=== PATIENT | female | born 1970 | race Caucasian/White ===

== ENCOUNTER 2016-10-16 22:33 | Emergency (ER) | payer OTHER ==
[~2016-10-16] VITALS: Ht 157.5 cm; Wt 65.8 kg
[~2016-10-16 22:33] MED LIST: ALEVE
[2016-10-16 22:51] VITALS: BP 198/123
--- NOTE | 2016-10-16 23:00 | NUR ---
TO ER BED 7
--- NOTE | 2016-10-16 23:00 | NUR ---
46 YO PATIENT PRESENTS TO ED WITH LT LOWER JAW AND TOOTH PAIN. . PT STATES START YESTER DAY AFTERNOON. TOOK ibUPROPHINE 800MG @ 11:00 AND 1600 . DENIES N/V/D; SKIN IS PINK/WARM/DRY; AAOX4 WITH EVEN AND STEADY GAIT; LUNGS CLEAR BL; HR EVEN AND REGULAR; PT DENIES ANY FEVER, CP, SOB, OR COUGH AT THIS TIME; PATIENT STATES PAIN OF 10/10 AT THIS TIME; VSS; PATIENT POSITIONED FOR COMFORT; HOB ELEVATED; BEDRAILS UP X2; BED DOWN. ER MD MADE AWARE OF PT STATUS.
--- NOTE | 2016-10-16 23:24 | NUR ---
Patient being evaluated by physician at bedside.
[2016-10-16] MEDS ORDERED: LORazepam 1 MG TAB PO ONE (23:25)
[2016-10-16] MEDS ORDERED: KETOROLAC 30 MG/ML VIAL IM ONE (23:25)
[2016-10-16] MEDS ORDERED: HYDROcodone/APAP 5/325 MG 1 TAB TAB PO ONE (23:25)
--- NOTE | 2016-10-17 01:00 | NUR ---
Patient discharged with v/s stable. Written and verbal after care instructions given and explained. Patient alert, oriented and verbalized understanding of instructions. Ambulatory with steady gait. All questions addressed prior to discharge. ID band removed. Patient advised to follow up with PMD. Rx of NAPROXEN, NORCO, PEN VK given. Patient educated on indication of medication including possible reaction and side effects. Opportunity to ask questions provided and answered.
--- NOTE | 2016-10-17 01:00 | NUR ---
Note essierenu in EDM - 10/17/16 at 0651 by [id number] Patient discharged with v/s stable. Written and verbal after care instructions given and explained. Patient alert, oriented and verbalized understanding of instructions. Ambulatory with steady gait. All questions addressed prior to discharge. ID band removed. Patient advised to follow up with PMD. Rx of NAPROSYN 500MG 1 TAB PO 2 TIMES A DAY FOR PAIN,NORCO 5/325MG 1 TAB PO EVERY 4 HOURS FOR PAIN, PENICILLIN VK 500MG 1 TAB PO 3 TIMES A DAY. Patient educated on indication of medication including possible reaction and side effects. Opportunity to ask questions provided and answered.
[2016-10-17 01:09] VITALS: BP 175/87
== END 2016-10-17 01:06 | disposition home or self-care (01) ==
LOC: MED 22:33
DX: K08.89 Other specified disorders of teeth and supporting structures (principal); R51 Headache; F17.200 Nicotine dependence, unspecified, uncomplicated; Z91.018 Allergy to other foods
CPT/HCPCS: 81002; 81025; 96372; 99283; J1885

== ENCOUNTER 2019-11-12 16:20 | Emergency (ER) | payer OTHER ==
[~2019-11-12] VITALS: Ht 152.4 cm; Wt 72.6 kg
[2019-11-12 16:33] VITALS: BP 173/123
--- NOTE | 2019-11-12 16:44 | NUR ---
PT AMBULATED TO ER BED 6
--- NOTE | 2019-11-12 16:47 | NUR ---
49 Y/O C/O HEADACHE, BLURRED VISION, DIZZINESS, N/V X 3 DAYS. PT STATES 2 EPISODES OF VOMITING. STATES SHE HAS BEEN HAVING HEADACHES MORE FREQUENTLY, INCREASING THE PAST 2 DAYS. DENIES ABD PAIN. DENIES CHEST PAIN/SOB. STATES SHE TOOK ASPIRIN AT 0900 WITH NO PAIN RELIEF. 10/10 THROBBING CONSTANT HEADACHE. PT TEARFUL IN BED, CALM AND PLEASANT. PT PLACED ON MONITOR. WILL CONTINUE TO MONITOR MEDHX: DENIES ALLERGIES: [id number]
--- NOTE | 2019-11-12 17:11 | NUR ---
DR BOUCHER AT BEDSIDE EXAMINING PT
[2019-11-12] MEDS ORDERED: fentaNYL 0.05 MG/ML VIAL IVP ONE (17:15)
[2019-11-12] MEDS ORDERED: METOCLOPRAMIDE 10 MG/2 ML INJ VIAL IVP ONE (17:15)
[2019-11-12] MEDS ORDERED: NACL 0.9% 1,000 ML IV ONE (17:15)
--- NOTE | 2019-11-12 17:37 | NUR ---
RADIOLOGY AT BEDSIDE
[2019-11-12 17:51] LABS: BASOPHILS % (AUTO) 0.1 % (0.0-2.0); EOSINOPHILS % (AUTO) 0.1 % (0.0-4.0); HEMATOCRIT 35.6 % (36-48); HEMOGLOBIN 11.6 g/dL (12.0-16.0); LYMPHOCYTES % (AUTO) 12.1 % (20.5-51.1); MEAN CORPUSCULAR HEMOGLOBIN 22 pg (27-31); MEAN CORPUSCULAR HGB CONC 33 g/dL (33-37); MEAN CORPUSCULAR VOLUME 67.9 fL (80-94); MONOCYTES # (AUTO) 0.5 K/uL (0.8-1.0); MONOCYTES % (AUTO) 6.3 % (1.7-9.3); NEUTROPHILS % (AUTO) 81.4 % (42.2-75.2); PLATELET COUNT (AUTO) 378 K/uL (140-450); RED BLOOD CELL COUNT(AUTO) 5.24 MIL/uL (4.20-5.40); RED CELL DISTRIBUTION WIDTH 18.3 % (11.6-13.7); WHITE BLOOD COUNT (AUTO) 8.6 K/uL (4.8-10.8)
--- NOTE | 2019-11-12 18:04 | NUR ---
PT TAKEN TO CT VIA BENITO GARCIA
--- NOTE | 2019-11-12 18:11 | NUR ---
PT RETURNED FROM CT VIA BENITO GARCIA
[2019-11-12 18:13] LABS: ALBUMIN 3.3 g/dL (3.4-5.0); ANION GAP 11.7 (8-16); CARBON DIOXIDE 25.7 mmol/L (21-32); CREATININE 0.9 mg/dL (0.6-1.3); POTASSIUM 3.4 mmol/L (3.5-5.1); TOTAL BILIRUBIN 0.4 mg/dL (0.0-1.0)
[2019-11-12 18:17] LABS: PROTHROMBIN TIME 9.4 secs (10.8-13.4)
--- NOTE | 2019-11-12 18:21 | NUR ---
PT STATES DECREASE IN PAIN AT THIS TIME. RR EVEN AND UNLABORED. REMAINS ON MONITOR. WILL CONTINUE TO MONITOR
[2019-11-12 18:57] VITALS: BP 168/102
--- NOTE | 2019-11-12 18:57 | NUR ---
PT STATES SHE HAS A RIDE HOME. WILL WAIT IN LOBBY
--- NOTE | 2019-11-12 18:58 | NUR ---
Patient discharged with v/s stable. Written and verbal after care instructions given and explained. Patient alert, oriented and verbalized understanding of instructions. Ambulatory with steady gait. All questions addressed prior to discharge. ID band removed. Patient advised to follow up with PMD. Rx of NAPROSYN, CLARITIN, REGLAN given. Patient educated on indication of medication including possible reaction and side effects. Opportunity to ask questions provided and answered.
== END 2019-11-12 18:58 | disposition home or self-care (01) ==
LOC: MED 16:20
DX: G43.909 Migraine, unspecified, not intractable, without status migrainosus (principal); R03.0 Elevated blood-pressure reading, without diagnosis of hypertension; D64.9 Anemia, unspecified; I10 Essential (primary) hypertension; R42 Dizziness and giddiness; Z79.899 Other long term (current) drug therapy; Z88.8 Allergy status to other drugs, medicaments and biological substances
CPT/HCPCS: 36415; 70450; 71045; 80053; 84484; 85025; 85610; 85730; 93005; 96361; 96374; 96375; 99285; J2765; J3010; J7030; Q0092

== ENCOUNTER 2020-02-16 17:50 | Emergency (ER) | payer OTHER ==
[~2020-02-16] VITALS: Ht 154.9 cm; Wt 77.1 kg
--- NOTE | 2020-02-16 17:55 | NUR ---
Patient ambulated to bed 12. RN evaluating patient at bedside.
[2020-02-16 17:57] VITALS: BP 172/120
--- NOTE | 2020-02-16 18:01 | NUR ---
49 Y/O F C/C BILATERAL SHOULDER PAIN X 3 DAYS. PER PT LEFT SHOULDER 10/10; LIMITED ROM; CMS WNL. RIGHT SHOULDER 8/10 ; LIMITED ROM ; CMS WNL. DENIES TRAUMA ON SHOULDERS. UNKNOWN CAUSE. ALLERGIES IODINE. DENIES HX; PER PT WENT TO CLINIC AND GIVEN RX FOR DEPRESSION AND ANXIETY, DOES NOT RECALL RX GIVEN. SIDE RAIL X1.
--- NOTE | 2020-02-16 18:07 | NUR ---
RAD AT BEDSIDE
[2020-02-16] MEDS ORDERED: DIAZEPAM 5 MG TAB PO ONE (18:30)
[2020-02-16] MEDS ORDERED: KETOROLAC 30 MG/ML VIAL IM ONE (18:30)
--- NOTE | 2020-02-16 19:15 | NUR ---
RECEIVED REPORT FROM SHANICE ORDONEZ FOR CONTINUATION OF CARE.
--- NOTE | 2020-02-16 19:16 | NUR ---
PT RESTING IN BED AT LOWEST POSITION, HOB ELEVATED, SIDE RAIL X 1, BLANKET PROVIDED TO PT FOR COMFORT.
[2020-02-16] MEDS ORDERED: HYDROcodone/APAP 5/325 MG 1 TAB TAB PO ONE (20:15)
--- NOTE | 2020-02-16 20:26 | NUR ---
SLING SIZE MEDIUM PLACED ON PT L ARM, ADJUSTED TO PT SIZE
[2020-02-16 20:40] VITALS: BP 164/99
--- NOTE | 2020-02-16 20:48 | NUR ---
Patient discharged with v/s stable. Written and verbal after care instructions given and explained. Patient alert, oriented and verbalized understanding of instructions. Ambulatory with steady gait. All questions addressed prior to discharge. ID band removed. Patient advised to follow up with PMD. Rx of METHYLPREDNISOLONE given. Patient educated on indication of medication including possible reaction and side effects. Opportunity to ask questions provided and answered.
== END 2020-02-16 20:40 | disposition home or self-care (01) ==
LOC: MED 17:50
DX: M25.512 Pain in left shoulder (principal); I10 Essential (primary) hypertension; Z79.899 Other long term (current) drug therapy; Z88.8 Allergy status to other drugs, medicaments and biological substances
CPT/HCPCS: 73030; 96372; 99283; J1885; Q0092

== ENCOUNTER 2020-04-02 08:57 | Emergency (ER) | payer OTHER ==
[~2020-04-02] VITALS: Ht 154.9 cm; Wt 78.9 kg
[2020-04-02 09:06] VITALS: BP 141/101
[2020-04-02] MEDS ORDERED: KETOROLAC 30 MG/ML VIAL IM ONE (10:50)
[2020-04-02] MEDS ORDERED: HALOPERIDOL IM 5 MG/ML VIAL IM ONE (10:50)
[2020-04-02 11:26] LABS: BASOPHILS # (AUTO) 0.1 K/uL (0.00-0.22); BASOPHILS % (AUTO) 0.6 % (0.0-2.0); EOSINOPHILS # (AUTO) 0.2 K/uL (0-0.4); EOSINOPHILS % (AUTO) 2.7 % (0.0-4.0); LYMPHOCYTES # (AUTO) 2.2 K/uL (2.5-16.5); LYMPHOCYTES % (AUTO) 26.8 % (20.5-51.1); MEAN CORPUSCULAR HEMOGLOBIN 24 pg (27-31); MEAN CORPUSCULAR HGB CONC 32 g/dL (33-37); MEAN CORPUSCULAR VOLUME 73.4 fL (80-94); MONOCYTES # (AUTO) 0.6 K/uL (0.8-1.0); MONOCYTES % (AUTO) 7.2 % (1.7-9.3); NEUTROPHILS # (AUTO) 5.1 K/uL (1.8-7.7); NEUTROPHILS % (AUTO) 62.7 % (42.2-75.2); PLATELET COUNT (AUTO) 521 K/uL (140-450); RED BLOOD CELL COUNT(AUTO) 4.22 MIL/uL (4.20-5.40); RED CELL DISTRIBUTION WIDTH 21.2 % (11.6-13.7); WHITE BLOOD COUNT (AUTO) 8.2 K/uL (4.8-10.8)
[2020-04-02 11:59] LABS: ALBUMIN 2.6 g/dL (3.4-5.0); ANION GAP 16.7 (8-16); CARBON DIOXIDE 23.2 mmol/L (21-32); CREATININE 1.1 mg/dL (0.6-1.3); POTASSIUM 3.9 mmol/L (3.5-5.1); TOTAL BILIRUBIN 0.2 mg/dL (0.0-1.0)
[2020-04-02] MEDS ORDERED: NACL 0.9% 1,000 ML IV ONE (13:35)
[2020-04-02] MEDS ORDERED: NITROFURANTOIN 100 MG CAP PO ONE (14:25)
[2020-04-02 15:04] VITALS: BP 133/101
== END 2020-04-02 15:04 | disposition home or self-care (01) ==
LOC: MED 08:57
DX: N39.0 Urinary tract infection, site not specified (principal); E86.0 Dehydration; M79.604 Pain in right leg; M79.605 Pain in left leg; I10 Essential (primary) hypertension; L40.50 Arthropathic psoriasis, unspecified; F32.9 Major depressive disorder, single episode, unspecified
CPT/HCPCS: 36415; 80053; 81002; 81025; 85025; 85651; 86140; 96372; 99284; J1630; J1885